=== PATIENT | female | born 1950 | race Two or more races ===

== ENCOUNTER 2024-04-22 08:13 | Emergency (ER) | payer MEDICARE ==
[2024-04-22] MEDS: Ibuprofen 400 MG Tab PO ONE (08:55)
== END 2024-04-22 09:57 | disposition home or self-care (01) ==
LOC: MW.ED 08:13
DX: J00 Acute nasopharyngitis [common cold] (principal); R05.9 Cough, unspecified; Z79.899 Other long term (current) drug therapy
CPT/HCPCS: 71046; 71046-26; 87651-QW; 99283; A9270-GY; U0002